=== PATIENT | male | born 1945 | race Caucasian/White ===

== ENCOUNTER 2021-06-15 21:05 | Inpatient (IN) | payer OTHER ==
[2021-06-15] MEDS ORDERED: SODIUM CHLORIDE 2,041 ML IV ONE (21:37)
[2021-06-15 22:20] LABS: VENOUS BASE EXCESS -9.6 mmol/L (-2-2); VENOUS O2 SATURATION 76.1 % (70-80); VENOUS PCO2 35.9 mmHg (38-52); VENOUS PH 7.274 (7.310-7.410)
[2021-06-15 22:27] LABS: BASO % 0.4 % (0-2.0); HEMATOCRIT 42.4 % (35.4-49); HEMOGLOBIN 14.1 GM/dL (11.7-16.9); LYMPH % 12.2 % (8-40); MCHC 33.2 g/dl (32.0-35.9); MEAN CELL VOLUME 84.2 fl (80-96); MEAN PLT VOLUME 7.7 fl (7.5-11.1); MONO % 6.3 % (3.8-10.2); NEUT % 81.1 % (42.8-82.8); PLATELET COUNT 495 10^3/uL (134-434); RBC 5.03 M/mm3 (4.00-5.60); RDW 17.2 % (11.9-15.9); WHITE BLOOD COUNT 11.1 K/mm3 (4.0-10.0)
[2021-06-15 22:28] LABS: INR 2.09 (0.83-1.09); PROTHROMBIN TIME (PATIENT) 25.2 SEC (9.7-13.0)
[2021-06-15 22:30] LABS: ACTIVATED PTT 36.9 SECONDS (25.2-36.5)
[2021-06-15] MEDS ORDERED: morphine CARPU-JECT 2 MG/1 ML DISP.SYRIN IVPUSH ONE (22:41)
[2021-06-15] MEDS ORDERED: LIDOCAINE 5% TOPICAL PATCH TP ONE (22:41)
[2021-06-15 22:42] LABS: CHLORIDE 105 mmol/L (98-107); SODIUM 136 mmol/L (136-145)
[2021-06-15 22:44] LABS: CALCIUM 10.4 mg/dL (8.5-10.1)
[2021-06-15 22:46] LABS: ALBUMIN 2.8 g/dl (3.4-5.0); CO2 17 mmol/L (21-32); GLUCOSE,RANDOM 89 mg/dL (74-106)
[2021-06-15 22:48] LABS: CREATININE 4.3 mg/dL (0.55-1.3); SGOT/AST 235 U/L (15-37); SGPT/ALT 120 U/L (13-61)
[2021-06-15 22:49] LABS: BILIRUBIN,TOTAL 11.4 mg/dL (0.2-1)
[2021-06-15 22:50] LABS: TOT PROT 6.6 g/dl (6.4-8.2)
[2021-06-15 22:51] LABS: ALK PHOS 963 U/L (45-117)
[2021-06-15] MEDS ORDERED: MORPHINE SULFATE 2 MG/ML VIAL ONE (22:54)
[2021-06-15] MEDS ORDERED: LIDOCAINE 5% TOPICAL PATCH ONE (22:54)
[2021-06-15 23:11] LABS: ANION GAP 15 MMOL/L (8-16); BLOOD UREA NITROGEN 118.5 mg/dL (7-18)
[2021-06-15] MEDS ORDERED: INSULIN REGULAR HUMAN 100 UNITS/ML *VIAL IVPUSH ONE (23:33)
[2021-06-15] MEDS ORDERED: CALCIUM GLUCONATE 10% - 1,000 MG/10 ML VIAL IVPB ONE (23:33)
[2021-06-15] MEDS ORDERED: DEXTROSE 50%-WATER - 25 GM/50 ML VIAL IVPUSH ONE (23:33)
[2021-06-15] MEDS ORDERED: DEXTROSE 50%-WATER 25 GM/50 ML DISP.SYRIN ONE (23:36)
[2021-06-15] MEDS ORDERED: INSULIN REGULAR HUMAN 100 UNITS/ML *VIAL ONE (23:36)
[2021-06-15] MEDS ORDERED: CALCIUM GLUCONATE 10% - 1,000 MG/10 ML VIAL ONE (23:36)
[2021-06-16] MEDS ORDERED: SODIUM ZIRCONIUM CYCLOSILICATE (LOKELMA) 5 GM PACKET ONE ×2 (02:22→05:49)
[2021-06-16] MEDS ORDERED: SODIUM ZIRCONIUM CYCLOSILICATE (LOKELMA) 10 GM PACKET PO ONE (02:24)
[2021-06-16 03:22] LABS: CHLORIDE 112 mmol/L (98-107); SODIUM 139 mmol/L (136-145)
[2021-06-16 03:25] LABS: CALCIUM 9.8 mg/dL (8.5-10.1)
[2021-06-16 03:25] LABS: EPI CELLS 8 /uL (0-25.1); HYALINE CASTS 4 /uL (0-3.1); URINE APPEARANCE CLOUDY; URINE BACTERIA 15 /uL (0-1359); URINE BILIRUBIN 2+ (NEGATIVE); URINE COLOR DK YELLOW; URINE GLUCOSE (UA) NEGATIVE (NEGATIVE); URINE KETONE TRACE (NEGATIVE); URINE LEUK ESTERASE NEGATIVE (NEGATIVE); URINE NITRITE NEGATIVE (NEGATIVE); URINE PROTEIN 1+ (NEGATIVE); URINE RBC 69 /uL (0-23.9); URINE WBC 17 /uL (0-25.8)
[2021-06-16 03:26] LABS: CO2 15 mmol/L (21-32); GLUCOSE,RANDOM 96 mg/dL (74-106)
[2021-06-16 04:38] LABS: ANION GAP 12 MMOL/L (8-16)
[2021-06-16] MEDS ORDERED: CALCIUM GLUCONATE 10% - 1,000 MG/10 ML VIAL IVPUSH ONE (04:45)
[2021-06-16] MEDS ORDERED: DEXTROSE 50%-WATER - 25 GM/50 ML VIAL IVPUSH ONE (04:45)
[2021-06-16] MEDS ORDERED: SODIUM ZIRCONIUM CYCLOSILICATE (LOKELMA) 5 GM PACKET PO ONE ×4 (04:45→19:41)
[2021-06-16] MEDS ORDERED: INSULIN REGULAR HUMAN 100 UNITS/ML *VIAL IVPUSH ONE (04:45)
[2021-06-16] MEDS ORDERED: ALBUTEROL SO4 0.083% IH SOL 2.5 MG/3 ML VIAL.NEB. NEB ONE ×2 (04:49→05:49)
[2021-06-16] MEDS ORDERED: DEXTROSE 50%-WATER 25 GM/50 ML DISP.SYRIN ONE (05:49)
[2021-06-16] MEDS ORDERED: CALCIUM GLUCONATE 10% - 1,000 MG/10 ML VIAL ONE (05:49)
[2021-06-16] MEDS ORDERED: HEPARIN NA (PORCINE) 5,000 UNITS/ML 1ML VIAL SQ SCH (06:00)
[2021-06-16 07:08] LABS: COCAINE, UR NEGATIVE (NEGATIVE); URINE AMPHETAMINES NEGATIVE (NEGATIVE); URINE BARBITURATES NEGATIVE (NEGATIVE); URINE BENZODIAZEPINES NEGATIVE (NEGATIVE)
[2021-06-16 07:09] LABS: METHADONE, UR NEGATIVE (NEGATIVE); PHENCYCLIDINE,URINE NEGATIVE (NEGATIVE)
[2021-06-16 07:25] LABS: OPIATES, URI POSITIVE (NEGATIVE)
[2021-06-16 08:41] LABS: BASO % 0.5 % (0-2.0); EOS % 0.1 % (0-4.5); HEMATOCRIT 40.1 % (35.4-49); HEMOGLOBIN 13.5 GM/dL (11.7-16.9); LYMPH % 8.4 % (8-40); MCHC 33.7 g/dl (32.0-35.9); MEAN PLT VOLUME 7.7 fl (7.5-11.1); MONO % 8.3 % (3.8-10.2); NEUT % 82.7 % (42.8-82.8); PLATELET COUNT 398 10^3/uL (134-434); RBC 4.66 M/mm3 (4.00-5.60); RDW 17.6 % (11.9-15.9)
[2021-06-16 09:01] LABS: CHLORIDE 111 mmol/L (98-107); SODIUM 139 mmol/L (136-145)
[2021-06-16 09:05] LABS: ALBUMIN 2.6 g/dl (3.4-5.0); CO2 15 mmol/L (21-32); GLUCOSE,RANDOM 90 mg/dL (74-106); MAGNESIUM 2.5 mg/dL (1.8-2.4); PHOSPHOROUS 5.9 mg/dL (2.5-4.9)
[2021-06-16 09:07] LABS: SGOT/AST 208 U/L (15-37); SGPT/ALT 107 U/L (13-61)
[2021-06-16 09:08] LABS: CREATININE 3.9 mg/dL (0.55-1.3)
[2021-06-16 09:10] LABS: ALK PHOS 869 U/L (45-117); ANION GAP 13 MMOL/L (8-16); BILIRUBIN,TOTAL 9.9 mg/dL (0.2-1)
[2021-06-16] MEDS ORDERED: SODIUM ZIRCONIUM CYCLOSILICATE (LOKELMA) 10 GM PACKET PO SCH (10:00)
[2021-06-16] MEDS ORDERED: LIDOCAINE PATCH REMOVAL MC ONE (10:00)
[2021-06-16] MEDS ORDERED: SODIUM CHLORIDE 1,000 ML IV STA ×5 (10:18→22:07)
[2021-06-16 10:25] LABS: CHLORIDE 111 mmol/L (98-107); SODIUM 138 mmol/L (136-145)
[2021-06-16 10:28] LABS: CALCIUM 10.3 mg/dL (8.5-10.1); CO2 18 mmol/L (21-32); GLUCOSE,RANDOM 81 mg/dL (74-106)
[2021-06-16] MEDS ORDERED: SODIUM CHLORIDE 1,000 ML IV SCH (10:30)
[2021-06-16 10:32] LABS: BILIRUBIN,DIRECT 8.7 mg/dL (0.0-0.2); CREATININE 3.8 mg/dL (0.55-1.3); LIPASE 957 U/L (73-393)
[2021-06-16 10:34] LABS: ANION GAP 9 MMOL/L (8-16); BLOOD UREA NITROGEN 113.2 mg/dL (7-18); GAMMA GLUTAMYL TRANSPEPTIDASE 1287 U/L (5-85)
[2021-06-16] MEDS ORDERED: PIPERACILLIN/TAZOB 3.375 GM 3.375 GM in DEXTROSE 5%-WATER - 50 ML IVPB SCH (11:00)
[2021-06-16] MEDS ORDERED: CEFTRIAXONE 2 GM-D5W BAG 2 GM/50 ML BAG IVPB SCH (11:15)
[2021-06-16] MEDS ORDERED: PIPERACILLIN/TAZOB 2.25 GM 2.25 GM in DEXTROSE 5%-WATER - 50 ML IVPB SCH (11:15)
[2021-06-16] MEDS ORDERED: PIPERACILLIN/TAZOB 2.25 GM 2.25 GM/50 ML BAG IVPB ONE (11:44)
[2021-06-16] MEDS ORDERED: SODIUM CHLORIDE 500 ML IV STA (12:30)
[2021-06-16] MEDS ORDERED: SODIUM CHLORIDE 0.45% 1,000 ML IV SCH (12:30)
[2021-06-16 14:12] LABS: CHLORIDE 114 mmol/L (98-107); SODIUM 141 mmol/L (136-145)
[2021-06-16 14:14] LABS: ALBUMIN 2.4 g/dl (3.4-5.0); CALCIUM 9.3 mg/dL (8.5-10.1)
[2021-06-16 14:15] LABS: BLOOD UREA NITROGEN 103.9 mg/dL (7-18); CO2 16 mmol/L (21-32); GLUCOSE,RANDOM 76 mg/dL (74-106)
[2021-06-16 14:18] LABS: CREATININE 3.5 mg/dL (0.55-1.3); SGOT/AST 197 U/L (15-37); SGPT/ALT 98 U/L (13-61); TRIGLYCERIDES 304 mg/dL (0-150)
[2021-06-16 14:19] LABS: BILIRUBIN,TOTAL 9.4 mg/dL (0.2-1); TOT PROT 5.8 g/dl (6.4-8.2)
[2021-06-16] MEDS ORDERED: SODIUM BICARBONATE 8.4% 50 MEQ/50 ML DISP.SYRIN IVPUSH ONE ×3 (15:11→19:41)
[2021-06-16 15:12] LABS: ALK PHOS 802 U/L (45-117); ANION GAP 10 MMOL/L (8-16)
[2021-06-16 15:17] LABS: IRON SERUM 64 ug/dL (50-175); TOTAL IRON BINDING CAPACITY 289 ug/dL (250-450)
[2021-06-16] MEDS ORDERED: SODIUM BICARBONATE 8.4% - 50 MEQ in SODIUM CHLORIDE 0.45% 1,000 ML IV SCH ×2 (15:28→23:28)
[2021-06-16 16:45] LABS: CHLORIDE 113 mmol/L (98-107); SODIUM 141 mmol/L (136-145)
[2021-06-16] MEDS ORDERED: LORazepam 2 MG/ML SDV VIAL IVPUSH ONE ×3 (16:45→20:48)
[2021-06-16 16:46] LABS: CALCIUM 9.5 mg/dL (8.5-10.1); CO2 18 mmol/L (21-32)
[2021-06-16 16:47] LABS: BLOOD UREA NITROGEN 100.4 mg/dL (7-18); GLUCOSE,RANDOM 81 mg/dL (74-106)
[2021-06-16] MEDS ORDERED: LACTULOSE 20 GM/30 ML UDC (FOR ORAL USE ONLY) PO PRN ×3 (16:47→19:41)
[2021-06-16 16:50] LABS: CREATININE 3.6 mg/dL (0.55-1.3)
[2021-06-16 17:09] LABS: ANION GAP 10 MMOL/L (8-16)
[2021-06-16] MEDS ORDERED: LORazepam 2 MG/ML SDV VIAL ONE (17:41)
[2021-06-16] MEDS ORDERED: CHLORHEXIDINE GLUCONATE 4% CLEANSER FOR DECOLONIZATION TP SCH ×4 (22:00)
[2021-06-16] MEDS ORDERED: MUPIROCIN 2% TOPICAL OINTMENT FOR DECOLONIZATION NS SCH ×4 (22:00)
[2021-06-16] MEDS ORDERED: SODIUM CHLORIDE 0.9% 500 ML INFUS.BAG IV ONE (22:01)
[2021-06-16] MEDS: MUPIROCIN 2% TOPICAL OINTMENT FOR DECOLONIZATION NS SCH (22:10)
[2021-06-16] MEDS: CHLORHEXIDINE GLUCONATE 4% CLEANSER FOR DECOLONIZATION TP SCH (22:11)
[2021-06-16] MEDS: SODIUM BICARBONATE 8.4% - 50 MEQ in SODIUM CHLORIDE 0.45% 1,000 ML IV SCH (23:11)
[2021-06-17 00:23] LABS: CHLORIDE 118 mmol/L (98-107); SODIUM 142 mmol/L (136-145)
[2021-06-17 00:28] LABS: CALCIUM 9.1 mg/dL (8.5-10.1)
[2021-06-17 00:29] LABS: BLOOD UREA NITROGEN 100.5 mg/dL (7-18); CO2 15 mmol/L (21-32); GLUCOSE,RANDOM 81 mg/dL (74-106)
[2021-06-17 00:32] LABS: ANION GAP 10 MMOL/L (8-16); CREATININE 3.1 mg/dL (0.55-1.3)
[2021-06-17] MEDS ORDERED: SODIUM POLYSTYRENE SULFONATE 15 GM/60 ML BOTTLE RC ONE (00:43)
[2021-06-17] MEDS ORDERED: INSULIN REGULAR HUMAN 100 UNITS/ML *VIAL IVPUSH ONE ×2 (00:45→23:01)
[2021-06-17] MEDS ORDERED: DEXTROSE 50%-WATER - 25 GM/50 ML VIAL IVPUSH ONE (00:45)
[2021-06-17] MEDS ORDERED: SODIUM CHLORIDE 1,000 ML IV SCH (00:45)
[2021-06-17] MEDS ORDERED: DEXTROSE 50%-WATER 25 GM/50 ML DISP.SYRIN ONE ×2 (01:12→23:10)
[2021-06-17] MEDS ORDERED: DEXTROSE 50%-WATER 25 GM/50 ML DISP.SYRIN IVPUSH ONE ×2 (01:15→23:01)
[2021-06-17] MEDS ORDERED: MORPHINE SULFATE 2 MG/ML VIAL IVPUSH ONE (02:03)
[2021-06-17] MEDS ORDERED: LORazepam 2 MG/ML SDV VIAL IVPUSH PRN (03:15)
[2021-06-17 07:19] LABS: BASO % 0.4 % (0-2.0); EOS % 0.1 % (0-4.5); HEMATOCRIT 39.3 % (35.4-49); HEMOGLOBIN 12.7 GM/dL (11.7-16.9); LYMPH % 11.1 % (8-40); MCH 28.2 pg (25.7-33.7); MCHC 32.3 g/dl (32.0-35.9); MEAN CELL VOLUME 87.4 fl (80-96); MEAN PLT VOLUME 7.6 fl (7.5-11.1); MONO % 6.8 % (3.8-10.2); NEUT % 81.6 % (42.8-82.8); PLATELET COUNT 379 10^3/uL (134-434); RDW 17.5 % (11.9-15.9); WHITE BLOOD COUNT 10.1 K/mm3 (4.0-10.0)
[2021-06-17 07:36] LABS: CHLORIDE 116 mmol/L (98-107); SODIUM 143 mmol/L (136-145)
[2021-06-17 07:39] LABS: ALBUMIN 2.4 g/dl (3.4-5.0)
[2021-06-17 07:42] LABS: BILIRUBIN,DIRECT 7.8 mg/dL (0.0-0.2); CALCIUM 9.3 mg/dL (8.5-10.1)
[2021-06-17 07:43] LABS: ALBUMIN 2.5 g/dl (3.4-5.0); BLOOD UREA NITROGEN 98.6 mg/dL (7-18); CO2 18 mmol/L (21-32); GLUCOSE,RANDOM 74 mg/dL (74-106); MAGNESIUM 2.4 mg/dL (1.8-2.4)
[2021-06-17 07:44] LABS: BILIRUBIN,TOTAL 8.8 mg/dL (0.2-1); TOT PROT 5.4 g/dl (6.4-8.2)
[2021-06-17 07:46] LABS: PHOSPHOROUS 6.1 mg/dL (2.5-4.9); SGOT/AST 183 U/L (15-37); SGPT/ALT 97 U/L (13-61)
[2021-06-17 07:47] LABS: BILIRUBIN,TOTAL 9.2 mg/dL (0.2-1)
[2021-06-17 07:48] LABS: TOT PROT 5.6 g/dl (6.4-8.2)
[2021-06-17 07:50] LABS: ALK PHOS 735 U/L (45-117); ANION GAP 9 MMOL/L (8-16)
[2021-06-17 08:24] LABS: INR 2.45 (0.83-1.09); PROTHROMBIN TIME (PATIENT) 29.4 SEC (9.7-13.0)
[2021-06-17] MEDS ORDERED: LACTULOSE 20 GM/30 ML UDC (FOR RECTAL USE ONLY) PR ONE (08:50)
[2021-06-17 09:55] LABS: ANISOCYTOSIS 0; HELMET CELLS 0; HOWELL-JOLLY BODIES 0; MACROCYTOSIS 0; OVALOCYTE 0; PLATELET ESTIMATE NORMAL; ROULEAU 0; SICKELED CELLS 0; TARGET CELLS 0; TEAR DROP CELLS 0; TOXIC GRANULATION 0
[2021-06-17] MEDS ORDERED: LIDOCAINE VISCOUS 2% ORAL/TOP 100 ML BOTTLE MM ONE (10:44)
[2021-06-17] MEDS ORDERED: PT OWN MED DRAWER 7, Y5N ONE ×2 (11:00→11:27)
[2021-06-17] MEDS: SODIUM BICARBONATE 8.4% - 50 MEQ in SODIUM CHLORIDE 0.45% 1,000 ML IV SCH ×2 (12:05→16:41)
[2021-06-17] MEDS: PHENYLEPHRINE 0.25% NASAL SPRAY 15 ML BOTTLE NS SCH ×2 (12:07→21:11)
[2021-06-17] MEDS: MUPIROCIN 2% TOPICAL OINTMENT FOR DECOLONIZATION NS SCH ×2 (12:08→21:11)
[2021-06-17 12:12] LABS: ARTERIAL BLD GAS O2 SATURATION 96.2 % (95-98); ARTERIAL BLOOD GAS BASE EXCESS -10.5 mmol/L (-2-2); ARTERIAL BLOOD GAS PO2 98.3 mmHg (80-100); ARTERIAL BLOOD GAS pH 7.221 (7.350-7.450)
[2021-06-17] MEDS ORDERED: LACTULOSE 20 GM/30 ML UDC (FOR ORAL USE ONLY) NGT ONE (12:29)
[2021-06-17] MEDS ORDERED: ETOMIDATE 40 MG/20 ML VIAL IVPUSH ONE (13:58)
[2021-06-17] MEDS ORDERED: ROCURONIUM BROMIDE 50 MG/5 ML VIAL IV ONE (13:58)
[2021-06-17] MEDS ORDERED: RAPID SEQUENCE INTUBATION KIT NR ONE (14:22)
[2021-06-17] MEDS ORDERED: DEXTROSE 5%-WATER - 50 ML IVPB ONE (14:44)
[2021-06-17] MEDS ORDERED: cefTRIAXone SODIUM 1 GM VIAL ONE (14:44)
[2021-06-17] MEDS: CEFTRIAXONE 1 GM in DEXTROSE 5%-WATER - 50 ML IVPB SCH (14:47)
[2021-06-17] MEDS: PROPOFOL 1,000,000 MCG/100 ML VIAL IVPB SCH (16:32)
[2021-06-17] MEDS: CHLORHEXIDINE GLUCONATE 4% CLEANSER FOR DECOLONIZATION TP SCH (21:11)
[2021-06-17 22:41] LABS: ANION GAP 10 MMOL/L (8-16); CALCIUM 8.7 mg/dL (8.5-10.1); CHLORIDE 115 mmol/L (98-107); CO2 18 mmol/L (21-32); CREATININE 3.3 mg/dL (0.55-1.3); GLUCOSE,RANDOM 98 mg/dL (74-106); SODIUM 143 mmol/L (136-145)
[2021-06-17] MEDS ORDERED: CALCIUM GLUCONATE 10% - 1,000 MG/10 ML VIAL IVPUSH ONE (23:00)
[2021-06-18] MEDS: PROPOFOL 1,000,000 MCG/100 ML VIAL IVPB SCH ×2 (00:12→21:28)
[2021-06-18] MEDS: SODIUM BICARBONATE 8.4% - 50 MEQ in SODIUM CHLORIDE 0.45% 1,000 ML IV SCH ×4 (02:54→22:55)
[2021-06-18 06:05] LABS: BASO % 0.3 % (0-2.0); EOS % 0.2 % (0-4.5); HEMATOCRIT 36.9 % (35.4-49); HEMOGLOBIN 12.2 GM/dL (11.7-16.9); LYMPH % 9.9 % (8-40); MCH 28.5 pg (25.7-33.7); MCHC 33.1 g/dl (32.0-35.9); MEAN CELL VOLUME 86.3 fl (80-96); MEAN PLT VOLUME 7.8 fl (7.5-11.1); NEUT % 81.6 % (42.8-82.8); PLATELET COUNT 326 10^3/uL (134-434); RBC 4.27 M/mm3 (4.00-5.60); RDW 17.5 % (11.9-15.9); WHITE BLOOD COUNT 9.2 K/mm3 (4.0-10.0)
[2021-06-18 06:14] LABS: INR 1.79 (0.83-1.09); PROTHROMBIN TIME (PATIENT) 21.7 SEC (9.7-13.0)
[2021-06-18 06:25] LABS: CHLORIDE 114 mmol/L (98-107); SODIUM 142 mmol/L (136-145)
[2021-06-18 06:30] LABS: ALBUMIN 2.2 g/dl (3.4-5.0); CALCIUM 8.7 mg/dL (8.5-10.1); CO2 19 mmol/L (21-32); GLUCOSE,RANDOM 88 mg/dL (74-106); MAGNESIUM 2.4 mg/dL (1.8-2.4)
[2021-06-18 06:33] LABS: BILIRUBIN,DIRECT 7.4 mg/dL (0.0-0.2); CREATININE 3.2 mg/dL (0.55-1.3); SGOT/AST 218 U/L (15-37); SGPT/ALT 103 U/L (13-61)
[2021-06-18 06:35] LABS: BILIRUBIN,TOTAL 8.4 mg/dL (0.2-1); TOT PROT 5.1 g/dl (6.4-8.2)
[2021-06-18 06:37] LABS: LDH 570 U/L (87-246)
[2021-06-18 06:39] LABS: ALK PHOS 637 U/L (45-117); ANION GAP 9 MMOL/L (8-16); BLOOD UREA NITROGEN 105.7 mg/dL (7-18)
[2021-06-18] MEDS ORDERED: INSULIN REGULAR HUMAN 100 UNITS/ML *VIAL IVPUSH ONE ×3 (08:15→20:57)
[2021-06-18] MEDS ORDERED: CALCIUM GLUCONATE IN NACL 1 GM/50 ML BAG IVPB ONE (08:16)
[2021-06-18] MEDS ORDERED: DEXTROSE 50%-WATER - 25 GM/50 ML VIAL IVPUSH ONE ×3 (08:16→20:57)
[2021-06-18] MEDS ORDERED: SODIUM POLYSTYRENE SULFONATE 15 GM/60 ML BOTTLE PO ONE (08:17)
[2021-06-18] MEDS ORDERED: LACTULOSE 20 GM/30 ML UDC (FOR ORAL USE ONLY) PO PRN (08:19)
[2021-06-18] MEDS ORDERED: DEXTROSE 50%-WATER 25 GM/50 ML DISP.SYRIN ONE ×3 (08:43→21:05)
[2021-06-18] MEDS ORDERED: DEXTROSE 5%-WATER - 50 ML IVPB ONE (10:08)
[2021-06-18] MEDS ORDERED: PT OWN MED DRAWER 7, Y5N ONE ×2 (10:08→21:05)
[2021-06-18] MEDS ORDERED: cefTRIAXone SODIUM 1 GM VIAL ONE (10:08)
[2021-06-18] MEDS: PANTOPRAZOLE SODIUM 40 MG VIAL IVPUSH SCH (10:10)
[2021-06-18] MEDS: CEFTRIAXONE 1 GM in DEXTROSE 5%-WATER - 50 ML IVPB SCH (10:10)
[2021-06-18] MEDS: MUPIROCIN 2% TOPICAL OINTMENT FOR DECOLONIZATION NS SCH ×2 (11:07→21:11)
[2021-06-18] MEDS: PHENYLEPHRINE 0.25% NASAL SPRAY 15 ML BOTTLE NS SCH ×2 (11:07→21:12)
[2021-06-18] MEDS: RIFAXIMIN 400 MG/20 ML SUSPENSION PO SCH ×2 (14:46→21:40)
[2021-06-18 16:18] LABS: CHLORIDE 113 mmol/L (98-107); SODIUM 143 mmol/L (136-145)
[2021-06-18 16:19] LABS: CALCIUM 8.6 mg/dL (8.5-10.1)
[2021-06-18 16:20] LABS: CO2 20 mmol/L (21-32); GLUCOSE,RANDOM 105 mg/dL (74-106)
[2021-06-18 16:23] LABS: CREATININE 3.3 mg/dL (0.55-1.3)
[2021-06-18 16:26] LABS: ANION GAP 10 MMOL/L (8-16); BLOOD UREA NITROGEN 108.8 mg/dL (7-18)
[2021-06-18 17:34] LABS: CHLORIDE 114 mmol/L (98-107); SODIUM 142 mmol/L (136-145)
[2021-06-18 17:36] LABS: CALCIUM 8.6 mg/dL (8.5-10.1); CO2 20 mmol/L (21-32); GLUCOSE,RANDOM 105 mg/dL (74-106)
[2021-06-18 17:40] LABS: CREATININE 3.2 mg/dL (0.55-1.3)
[2021-06-18 17:45] LABS: ANION GAP 9 MMOL/L (8-16)
[2021-06-18] MEDS ORDERED: FENTANYL IVPB 500 MCG/100 ML BAG IVPB SCH (19:15)
[2021-06-18] MEDS: FENTANYL NS IVPB 500 MCG/100 ML BAG IVPB SCH (20:07)
[2021-06-18 20:30] LABS: CHLORIDE 115 mmol/L (98-107); SODIUM 144 mmol/L (136-145)
[2021-06-18 20:32] LABS: ANION GAP 9 MMOL/L (8-16); CALCIUM 8.8 mg/dL (8.5-10.1); CO2 20 mmol/L (21-32); GLUCOSE,RANDOM 110 mg/dL (74-106)
[2021-06-18 20:36] LABS: CREATININE 3.2 mg/dL (0.55-1.3)
[2021-06-18 20:44] LABS: BLOOD UREA NITROGEN 107.8 mg/dL (7-18)
[2021-06-18] MEDS ORDERED: CALCIUM GLUCONATE 10% - 1,000 MG/10 ML VIAL IVPUSH ONE (20:57)
[2021-06-18] MEDS: LACTULOSE 20 GM/30 ML UDC (FOR ORAL USE ONLY) PO SCH (21:11)
[2021-06-18] MEDS: CHLORHEXIDINE GLUCONATE 4% CLEANSER FOR DECOLONIZATION TP SCH (21:12)
[2021-06-19] MEDS: FENTANYL NS IVPB 500 MCG/100 ML BAG IVPB SCH ×3 (02:50→21:00)
[2021-06-19] MEDS: RIFAXIMIN 400 MG/20 ML SUSPENSION PO SCH ×3 (05:51→21:05)
[2021-06-19] MEDS: LACTULOSE 20 GM/30 ML UDC (FOR ORAL USE ONLY) PO SCH ×3 (05:51→21:05)
[2021-06-19 06:22] LABS: ARTERIAL BLD GAS O2 SATURATION 95.5 % (95-98); ARTERIAL BLOOD GAS BASE EXCESS -8.4 mmol/L (-2-2); ARTERIAL BLOOD GAS PO2 92.4 mmHg (80-100); ARTERIAL BLOOD GAS pH 7.221 (7.350-7.450)
[2021-06-19 06:24] LABS: ALLENS TEST POSITIVE; PT'S TEMP 99.1; VENT MODE A/C; VENT RATE 16
[2021-06-19 07:16] LABS: HEMATOCRIT 37.3 % (35.4-49); HEMOGLOBIN 12.2 GM/dL (11.7-16.9); MCH 28.5 pg (25.7-33.7); MCHC 32.7 g/dl (32.0-35.9); MEAN CELL VOLUME 87.1 fl (80-96); PLATELET COUNT 337 10^3/uL (134-434); RBC 4.28 M/mm3 (4.00-5.60); RDW 18.1 % (11.9-15.9); WHITE BLOOD COUNT 11.3 K/mm3 (4.0-10.0)
[2021-06-19 07:23] LABS: INR 1.3 (0.83-1.09); PROTHROMBIN TIME (PATIENT) 15.6 SEC (9.7-13.0)
[2021-06-19 07:40] LABS: CHLORIDE 114 mmol/L (98-107); SODIUM 143 mmol/L (136-145)
[2021-06-19 07:45] LABS: ALBUMIN 1.9 g/dl (3.4-5.0); CALCIUM 8.7 mg/dL (8.5-10.1); CO2 20 mmol/L (21-32); GLUCOSE,RANDOM 114 mg/dL (74-106); MAGNESIUM 2.7 mg/dL (1.8-2.4)
[2021-06-19] MEDS: VASOPRESSIN 40 UNITS in SODIUM CHLORIDE 98 ML IVPB SCH ×2 (07:45→14:45)
[2021-06-19 07:48] LABS: BILIRUBIN,DIRECT 8.5 mg/dL (0.0-0.2); CREATININE 3.6 mg/dL (0.55-1.3); PHOSPHOROUS 6.5 mg/dL (2.5-4.9); SGOT/AST 277 U/L (15-37); SGPT/ALT 123 U/L (13-61)
[2021-06-19 07:50] LABS: BILIRUBIN,TOTAL 9.7 mg/dL (0.2-1); TOT PROT 4.9 g/dl (6.4-8.2)
[2021-06-19 07:52] LABS: ALK PHOS 688 U/L (45-117); ANION GAP 9 MMOL/L (8-16); BLOOD UREA NITROGEN 111.2 mg/dL (7-18)
[2021-06-19] MEDS: SODIUM CHLORIDE 0.45% 1,000 ML IV SCH (08:11)
[2021-06-19 08:19] LABS: EPI CELLS 2 /uL (0-25.1); HYALINE CASTS 2 /uL (0-3.1); URINE APPEARANCE TURBID; URINE BILIRUBIN 2+ (NEGATIVE); URINE COLOR DK YELLOW; URINE GLUCOSE (UA) NEGATIVE (NEGATIVE); URINE KETONE NEGATIVE (NEGATIVE); URINE LEUK ESTERASE TRACE (NEGATIVE); URINE NITRITE POSITIVE (NEGATIVE); URINE PROTEIN TRACE (NEGATIVE); URINE RBC 196 /uL (0-23.9); URINE WBC 10 /uL (0-25.8)
[2021-06-19] MEDS ORDERED: DEXTROSE 5%-WATER - 50 ML IVPB ONE (09:16)
[2021-06-19] MEDS ORDERED: cefTRIAXone SODIUM 1 GM VIAL ONE (09:16)
[2021-06-19] MEDS: CEFTRIAXONE 1 GM in DEXTROSE 5%-WATER - 50 ML IVPB SCH (09:19)
[2021-06-19] MEDS: PANTOPRAZOLE SODIUM 40 MG VIAL IVPUSH SCH (09:21)
[2021-06-19] MEDS: PROPOFOL 1,000,000 MCG/100 ML VIAL IVPB SCH ×2 (09:21→17:41)
[2021-06-19] MEDS: MUPIROCIN 2% TOPICAL OINTMENT FOR DECOLONIZATION NS SCH ×2 (09:22→21:01)
[2021-06-19] MEDS: PHENYLEPHRINE 0.25% NASAL SPRAY 15 ML BOTTLE NS SCH ×2 (09:22→21:01)
[2021-06-19 09:42] LABS: URINE CRYSTALS NONE SEEN /hpf
[2021-06-19 14:11] LABS: HEP B CORE AB, TOT Positive (Negative)
[2021-06-19] MEDS ORDERED: NOREPINEPHRINE BITARTRATE 4 MG/4 ML ML IV ONE (18:03)
[2021-06-19] MEDS: NOREPINEPHRINE NS PREMIX 8,000 MCG/500 ML BAG IVPB SCH (18:15)
[2021-06-19 18:22] LABS: CHLORIDE 111 mmol/L (98-107); SODIUM 141 mmol/L (136-145)
[2021-06-19 18:24] LABS: CALCIUM 8.5 mg/dL (8.5-10.1)
[2021-06-19 18:25] LABS: CO2 18 mmol/L (21-32); GLUCOSE,RANDOM 134 mg/dL (74-106)
[2021-06-19 18:28] LABS: CREATININE 3.8 mg/dL (0.55-1.3)
[2021-06-19 18:34] LABS: ANION GAP 12 MMOL/L (8-16); BLOOD UREA NITROGEN 119.5 mg/dL (7-18)
[2021-06-19] MEDS ORDERED: DEXTROSE 50%-WATER - 25 GM/50 ML VIAL IVPUSH ONE (19:00)
[2021-06-19] MEDS ORDERED: CALCIUM GLUCONATE 10% - 1,000 MG/10 ML VIAL IVPUSH ONE (19:00)
[2021-06-19] MEDS ORDERED: INSULIN REGULAR HUMAN 100 UNITS/ML *VIAL IVPUSH ONE (19:01)
[2021-06-19] MEDS ORDERED: DEXTROSE 50%-WATER 25 GM/50 ML DISP.SYRIN ONE (20:38)
[2021-06-19] MEDS ORDERED: CALCIUM GLUCONATE 10% - 1,000 MG/10 ML VIAL ONE (20:38)
[2021-06-19] MEDS ORDERED: INSULIN REGULAR HUMAN 100 UNITS/ML *VIAL ONE (20:38)
[2021-06-19] MEDS: CHLORHEXIDINE GLUCONATE 4% CLEANSER FOR DECOLONIZATION TP SCH (21:01)
[2021-06-19] MEDS ORDERED: PT OWN MED DRAWER 7, Y5N ONE (21:04)
[2021-06-20 03:03] LABS: CHLORIDE 113 mmol/L (98-107); SODIUM 143 mmol/L (136-145)
[2021-06-20 03:05] LABS: CALCIUM 8.1 mg/dL (8.5-10.1); CO2 18 mmol/L (21-32); GLUCOSE,RANDOM 143 mg/dL (74-106)
[2021-06-20 03:09] LABS: CREATININE 3.8 mg/dL (0.55-1.3)
[2021-06-20 03:27] LABS: ANION GAP 13 MMOL/L (8-16); BLOOD UREA NITROGEN 114.9 mg/dL (7-18)
[2021-06-20] MEDS ORDERED: INSULIN REGULAR HUMAN 100 UNITS/ML *VIAL IVPUSH ONE ×2 (03:51→08:37)
[2021-06-20] MEDS ORDERED: DEXTROSE 50%-WATER - 25 GM/50 ML VIAL IVPUSH ONE ×2 (03:51→08:37)
[2021-06-20] MEDS ORDERED: CALCIUM GLUCONATE 10% - 1,000 MG/10 ML VIAL IVPUSH ONE ×2 (03:52→08:36)
[2021-06-20] MEDS ORDERED: DEXTROSE 50%-WATER 25 GM/50 ML DISP.SYRIN ONE (04:02)
[2021-06-20] MEDS: RIFAXIMIN 400 MG/20 ML SUSPENSION PO SCH ×3 (06:37→22:06)
[2021-06-20] MEDS: PROPOFOL 1,000,000 MCG/100 ML VIAL IVPB SCH ×3 (06:37→22:06)
[2021-06-20] MEDS: LACTULOSE 20 GM/30 ML UDC (FOR ORAL USE ONLY) PO SCH ×3 (06:37→22:06)
[2021-06-20 07:20] LABS: INR 1.24 (0.83-1.09); PROTHROMBIN TIME (PATIENT) 15.2 SEC (9.7-13.0)
[2021-06-20 07:28] LABS: HEMATOCRIT 37.1 % (35.4-49); MCH 28.8 pg (25.7-33.7); MCHC 32.5 g/dl (32.0-35.9); MEAN CELL VOLUME 88.5 fl (80-96); MEAN PLT VOLUME 8.3 fl (7.5-11.1); PLATELET COUNT 307 10^3/uL (134-434); RBC 4.19 M/mm3 (4.00-5.60); RDW 17.5 % (11.9-15.9); WHITE BLOOD COUNT 11.4 K/mm3 (4.0-10.0)
[2021-06-20 07:36] LABS: CHLORIDE 112 mmol/L (98-107); SODIUM 142 mmol/L (136-145)
[2021-06-20 07:43] LABS: ALBUMIN 1.9 g/dl (3.4-5.0); CALCIUM 8.3 mg/dL (8.5-10.1); CO2 17 mmol/L (21-32); GLUCOSE,RANDOM 143 mg/dL (74-106); MAGNESIUM 2.8 mg/dL (1.8-2.4)
[2021-06-20 07:45] LABS: CHOLESTEROL 243 mg/dL (50-200); TRIGLYCERIDES 742 mg/dL (0-150)
[2021-06-20 07:46] LABS: CREATININE 3.9 mg/dL (0.55-1.3); PHOSPHOROUS 6.9 mg/dL (2.5-4.9)
[2021-06-20 07:47] LABS: BILIRUBIN,TOTAL 9.2 mg/dL (0.2-1); LDL CHOLESTEROL (ONLY SJRH) 152 mg/dL (5-100); TOT PROT 4.9 g/dl (6.4-8.2)
[2021-06-20 07:49] LABS: HDL CHOLESTEROL 9 mg/dL (40-60)
[2021-06-20 07:57] LABS: ALK PHOS 634 U/L (45-117); ANION GAP 13 MMOL/L (8-16); BLOOD UREA NITROGEN 126.2 mg/dL (7-18); SGOT/AST 1046 U/L (15-37); SGPT/ALT 352 U/L (13-61)
[2021-06-20 08:37] LABS: ANISOCYTOSIS 0; MACROCYTOSIS 0; PLATELET ESTIMATE NORMAL
[2021-06-20] MEDS: SODIUM CHLORIDE 0.45% 1,000 ML IV SCH (08:54)
[2021-06-20] MEDS ORDERED: DEXTROSE 50%-WATER - 25 GM/50 ML VIAL ONE (08:55)
[2021-06-20] MEDS: PHENYLEPHRINE 0.25% NASAL SPRAY 15 ML BOTTLE NS SCH ×2 (09:18→22:02)
[2021-06-20] MEDS ORDERED: DEXTROSE 5%-WATER - 50 ML IVPB ONE (09:20)
[2021-06-20] MEDS ORDERED: cefTRIAXone SODIUM 1 GM VIAL ONE (09:20)
[2021-06-20] MEDS: CEFTRIAXONE 1 GM in DEXTROSE 5%-WATER - 50 ML IVPB SCH (09:24)
[2021-06-20] MEDS: MUPIROCIN 2% TOPICAL OINTMENT FOR DECOLONIZATION NS SCH ×2 (09:25→22:02)
[2021-06-20] MEDS: PANTOPRAZOLE SODIUM 40 MG VIAL IVPUSH SCH (09:25)
[2021-06-20] MEDS ORDERED: PT OWN MED DRAWER 7, Y5N ONE ×2 (10:07→13:19)
[2021-06-20] MEDS ORDERED: FENTANYL NS IVPB 500 MCG/100 ML BAG IVPB SCH (12:41)
[2021-06-20] MEDS: FENTANYL NS IVPB 500 MCG/100 ML BAG IVPB SCH (12:55)
[2021-06-20] MEDS: VASOPRESSIN 40 UNITS in SODIUM CHLORIDE 98 ML IVPB SCH (12:56)
[2021-06-20 14:36] VITALS: BMI 28.5
[2021-06-20] MEDS ORDERED: SODIUM CHLORIDE 1,000 ML IV STA (17:04)
[2021-06-20] MEDS: HYDROCORTISONE SOD SUCCINATE 100 MG/2 ML VIAL IVPUSH SCH (18:47)
[2021-06-20] MEDS: NOREPINEPHRINE NS PREMIX 8,000 MCG/500 ML BAG IVPB SCH (18:48)
[2021-06-20] MEDS: CHLORHEXIDINE GLUCONATE 4% CLEANSER FOR DECOLONIZATION TP SCH (22:02)
[2021-06-21] MEDS: HYDROCORTISONE SOD SUCCINATE 100 MG/2 ML VIAL IVPUSH SCH ×4 (00:58→17:59)
[2021-06-21] MEDS: VASOPRESSIN 40 UNITS in SODIUM CHLORIDE 98 ML IVPB SCH ×3 (02:00→17:08)
[2021-06-21] MEDS: LACTULOSE 20 GM/30 ML UDC (FOR ORAL USE ONLY) PO SCH ×3 (06:30→21:00)
[2021-06-21] MEDS: RIFAXIMIN 400 MG/20 ML SUSPENSION PO SCH ×3 (06:31→22:33)
[2021-06-21] MEDS: SODIUM CHLORIDE 0.45% 1,000 ML IV SCH ×2 (06:33→08:59)
[2021-06-21 06:37] LABS: HEMOGLOBIN 11.7 GM/dL (11.7-16.9); MCH 29.6 pg (25.7-33.7); MCHC 33.4 g/dl (32.0-35.9); MEAN CELL VOLUME 88.8 fl (80-96); MEAN PLT VOLUME 8.5 fl (7.5-11.1); PLATELET COUNT 264 10^3/uL (134-434); RBC 3.94 M/mm3 (4.00-5.60); RDW 18.1 % (11.9-15.9); WHITE BLOOD COUNT 10.2 K/mm3 (4.0-10.0)
[2021-06-21 06:42] LABS: INR 1.27 (0.83-1.09); PROTHROMBIN TIME (PATIENT) 15.3 SEC (9.7-13.0)
[2021-06-21 06:50] LABS: CHLORIDE 114 mmol/L (98-107); SODIUM 142 mmol/L (136-145)
[2021-06-21 06:58] LABS: ALBUMIN 1.7 g/dl (3.4-5.0); CALCIUM 7.9 mg/dL (8.5-10.1); CO2 17 mmol/L (21-32); GLUCOSE,RANDOM 132 mg/dL (74-106); MAGNESIUM 2.7 mg/dL (1.8-2.4)
[2021-06-21 07:01] LABS: CREATININE 3.6 mg/dL (0.55-1.3); PHOSPHOROUS 7.5 mg/dL (2.5-4.9)
[2021-06-21 07:08] LABS: ALK PHOS 536 U/L (45-117); ANION GAP 12 MMOL/L (8-16); BLOOD UREA NITROGEN 120.3 mg/dL (7-18); SGOT/AST 814 U/L (15-37); SGPT/ALT 336 U/L (13-61); TOT PROT 4.6 g/dl (6.4-8.2)
[2021-06-21] MEDS ORDERED: INSULIN REGULAR HUMAN 100 UNITS/ML *VIAL IVPUSH ONE (08:45)
[2021-06-21] MEDS ORDERED: CALCIUM GLUCONATE 10% - 1,000 MG/10 ML VIAL IVPUSH ONE (08:45)
[2021-06-21] MEDS ORDERED: DEXTROSE 50%-WATER - 25 GM/50 ML VIAL IVPUSH ONE (08:45)
[2021-06-21] MEDS ORDERED: DEXTROSE 50%-WATER 25 GM/50 ML DISP.SYRIN ONE (08:54)
[2021-06-21] MEDS ORDERED: cefTRIAXone SODIUM 1 GM VIAL ONE (08:54)
[2021-06-21] MEDS ORDERED: PT OWN MED DRAWER 7, Y5N ONE ×2 (08:54→20:57)
[2021-06-21] MEDS ORDERED: DEXTROSE 5%-WATER - 50 ML IVPB ONE (08:55)
[2021-06-21] MEDS: PROPOFOL 1,000,000 MCG/100 ML VIAL IVPB SCH ×2 (08:58→17:06)
[2021-06-21] MEDS: CEFTRIAXONE 1 GM in DEXTROSE 5%-WATER - 50 ML IVPB SCH (09:00)
[2021-06-21] MEDS: MUPIROCIN 2% TOPICAL OINTMENT FOR DECOLONIZATION NS SCH (09:17)
[2021-06-21] MEDS: PHENYLEPHRINE 0.25% NASAL SPRAY 15 ML BOTTLE NS SCH ×2 (09:18→23:00)
[2021-06-21] MEDS ORDERED: VASOPRESSIN 20 UNITS/ML VIAL IV ONE ×2 (09:29→17:00)
[2021-06-21] MEDS: PANTOPRAZOLE SODIUM 40 MG VIAL IVPUSH SCH (09:35)
[2021-06-21] MEDS ORDERED: FLUDROCORTISONE ACETATE 0.1 MG TABLET (FP) PO SCH (10:00)
[2021-06-21] MEDS ORDERED: PANTOPRAZOLE SOD 40 MG SUSPENSION PACKET PO SCH (11:15)
[2021-06-21] MEDS ORDERED: SODIUM ZIRCONIUM CYCLOSILICATE (LOKELMA) 5 GM PACKET PO SCH (11:15)
[2021-06-21] MEDS: HEPARIN NA (PORCINE) 5,000 UNITS/ML 1ML VIAL SQ SCH ×2 (14:37→21:01)
[2021-06-21] MEDS: FENTANYL NS IVPB 500 MCG/100 ML BAG IVPB SCH (17:08)
[2021-06-21] MEDS: NOREPINEPHRINE NS PREMIX 8,000 MCG/500 ML BAG IVPB SCH (17:57)
[2021-06-21] MEDS ORDERED: METOCLOPRAMIDE HCL INJECTION 10 MG/2 ML VIAL IVPUSH ONE (20:35)
[2021-06-21] MEDS: CHLORHEXIDINE GLUCONATE 4% CLEANSER FOR DECOLONIZATION TP SCH (21:01)
[2021-06-22] MEDS ORDERED: VANCOMYCIN 1 GRAM (PRE-DOCKED) 1 MG/0.25 ML BAG IVPB ONE (00:56)
[2021-06-22] MEDS ORDERED: PIPERACILLIN/TAZOB 2.25 GM 2.25 GM in DEXTROSE 5%-WATER - 50 ML IVPB ONE (00:58)
[2021-06-22] MEDS: NOREPINEPHRINE NS PREMIX 8,000 MCG/500 ML BAG IVPB SCH (01:00)
[2021-06-22] MEDS ORDERED: MIDAZOLAM IN 0.9 % SOD.CHLORID 100 MG/100 ML PLAST..BAG IVPB SCH (01:15)
[2021-06-22] MEDS: HYDROCORTISONE SOD SUCCINATE 100 MG/2 ML VIAL IVPUSH SCH ×2 (01:36→06:54)
[2021-06-22] MEDS: VASOPRESSIN 40 UNITS in SODIUM CHLORIDE 98 ML IVPB SCH ×2 (01:50→06:54)
[2021-06-22] MEDS: FENTANYL NS IVPB 500 MCG/100 ML BAG IVPB SCH (02:00)
[2021-06-22] MEDS: PROPOFOL 1,000,000 MCG/100 ML VIAL IVPB SCH (02:09)
[2021-06-22 02:31] LABS: LACTIC ACID 4.4 mmol/L (0.4-2.0)
[2021-06-22] MEDS ORDERED: DEXTROSE 5%-WATER - 50 ML IVPB ONE (03:33)
[2021-06-22] MEDS ORDERED: PIPERACILLIN/TAZOBACTAM 2.25 GM VIAL IVPB ONE (03:33)
[2021-06-22] MEDS ORDERED: SODIUM CHLORIDE 0.45% 1,000 ML IV SCH (04:14)
[2021-06-22 04:27] VITALS: BP 93/45; PULSE 79
[2021-06-22 04:29] VITALS: TEMP 100.2
[2021-06-22] MEDS: HEPARIN NA (PORCINE) 5,000 UNITS/ML 1ML VIAL SQ SCH (06:53)
[2021-06-22] MEDS: LACTULOSE 20 GM/30 ML UDC (FOR ORAL USE ONLY) PO SCH (06:53)
[2021-06-22] MEDS: RIFAXIMIN 400 MG/20 ML SUSPENSION PO SCH (06:54)
== END 2021-06-22 04:48 | disposition expired | DRG 441 ==
LOC: JER 21:05 → JERBED 06-16 02:03 → JICU 06-16 19:07
PROVIDERS: ADMIT Internal Medicine; ATTEND Internal Medicine Pulmonary Disease
PROC: 0CHY7BZ Insertion of Airway into Mouth and Throat, Via Natural or Artificial Opening (ICD-10-PCS; principal; 2021-06-17)
PROC: 5A1945Z Respiratory Ventilation, 24-96 Consecutive Hours (ICD-10-PCS; 2021-06-17)
PROC: 05HN33Z Insertion of Infusion Device into Left Internal Jugular Vein, Percutaneous Approach (ICD-10-PCS; 2021-06-19)
PROC: B544ZZA Ultrasonography of Left Jugular Veins, Guidance (ICD-10-PCS; 2021-06-19)
DX: K72.00 Acute and subacute hepatic failure without coma (principal); J96.00 Acute respiratory failure, unspecified whether with hypoxia or hypercapnia; N17.9 Acute kidney failure, unspecified; E87.2 Acidosis; R57.9 Shock, unspecified; G93.49 Other encephalopathy; J98.11 Atelectasis; R18.8 Other ascites; D68.9 Coagulation defect, unspecified; D38.1 Neoplasm of uncertain behavior of trachea, bronchus and lung; I10 Essential (primary) hypertension; E87.5 Hyperkalemia; I46.9 Cardiac arrest, cause unspecified; R00.0 Tachycardia, unspecified; R41.82 Altered mental status, unspecified; K80.20 Calculus of gallbladder without cholecystitis without obstruction; F10.11 Alcohol abuse, in remission; E27.9 Disorder of adrenal gland, unspecified; N40.0 Benign prostatic hyperplasia without lower urinary tract symptoms; E78.1 Pure hyperglyceridemia; R16.1 Splenomegaly, not elsewhere classified; D69.6 Thrombocytopenia, unspecified; R50.9 Fever, unspecified
CPT/HCPCS: 31500; 36415; 36600; 70450-TC; 71045-TC-FY; 71250-TC; 72125-TC; 74176-TC; 76705-TC; 80048; 80053; 80061; 80074; 80076; 80307; 81003; 82105; 82140; 82248; 82570; 82728; 82803; 82962; 82977; 83036; 83540; 83550; 83605; 83615; 83690; 83721; 83735; 84100; 84132; 84300; 84443; 84478; 84484; 85025; 85027; 85610; 85730; 86140; 86157; 86704; 86706; 86707; 86708; 86709; 86850; 86900; 86901; 87040; 87086; 87340; 87516; 87804; 93005; 93010; 94002; 99285-25; C9803; G0480; J1644; U0003; U0005